=== PATIENT | female | born 1940 | race Caucasian/White ===

== ENCOUNTER 2016-03-30 09:27 | Emergency (ER) | payer MEDICARE, BC ==
[~2016-03-30] VITALS: Ht 160 cm; Wt 56.7 kg
[~2016-03-30 09:27] MED LIST: LATANOPROST2.5 ML BOTH EYES; LEVOTHYROXINE150 MCG ORAL; LEVOTHYROXINE200 MCG IV; LEVOTHYROXINE88 MCG ORAL; SYNTHROID137 MCG ORAL
[2016-03-30 09:43] VITALS: BP 148/76
--- NOTE | 2016-03-30 09:47 | Emergency Room Report ---
History of Present Illness General Chief Complaint: Pain Source: Patient Present Illness HPI The patient is a 75-year-old female presented after increased right shoulder pain for the past few days. Patient gradual onset of symptoms. Patient was having increased difficulty moving her right shoulder. The patient previous surgery on her left shoulder with joint replacement for arthritic changes. Patient stated that she had multiple allergies to pain medications. Patient any fever. She had not been having any abdominal pain. Patient denied any pain to the elbow or hands. She denied any numbness or weakness. Allergies: Coded Allergies: CODEINE (Unverified Allergy, Unknown, 04/24/15) CYCLOBENZAPRINE (Unverified Allergy, Unknown, 04/24/15) METHYLPREDNISOLONE (Unverified Allergy, Unknown, 04/24/15) TRAMADOL (Unverified Allergy, Unknown, 04/24/15) Patient History Past Medical History: see triage record, other - arthritis Reviewed Nursing Documentation: PMH: Agreed, PSxH: Agreed Nursing Documentation-PMH Past Medical History: No Stated History Hx Cardiac Problems: No Hx Cancer: No Hx Gastrointestinal Problems: No Hx Neurological Problems: No Review of Systems All Other Systems: negative except mentioned in HPI Physical Exam Vital Signs Date Time Temp Pulse Resp B/P Pulse Ox O2 Delivery O2 Flow Rate FiO2 03/30/16 09:34 97.5 79 18 148/76 100 Room Air Sp02 EP Interpretation: reviewed, normal General Appearance: normal inspection, well appearing, no apparent distress, alert, GCS 15 Head: atraumatic ENT: normal ENT inspection, hearing grossly normal, normal voice Neck: normal inspection, full range of motion, supple, no bony tend Respiratory: normal inspection, lungs clear, normal breath sounds, no respiratory distress, no retraction, no wheezing Cardiovascular #1: regular rate, rhythm, no edema Gastrointestinal: normal inspection, normal bowel sounds, non tender, soft, no guarding, no hernia Genitourinary: no CVA tenderness Musculoskeletal: normal inspection, back normal, tender - anterior, decreased ROM right shoulder Neurologic: normal inspection, alert, oriented x3, responsive, biztalk architect III-XII nml as tested, speech normal Psychiatric: normal inspection, judgement/insight normal, mood/affect normal Skin: normal inspection, normal color, no rash Medical Decision Making Diagnostic Impression: Primary Impression: Arthritis ER Course She presented for nontraumatic right shoulder pain. Differential diagnoses included was not limited to fracture, dislocation, a.c. separation, septic joint. Because of complexity of patient's case imaging studies were ordered. The patient appears to have localized tenderness to the anterior of the shoulder. She had no evident bicipital tenderness the patient was noted to have decreased active and passive range of motion. The patient was advised followup with orthopedics. She is also advised to see physical therapy for improvement in range of motion. Last Vital Signs Date Time Temp Pulse Resp B/P Pulse Ox O2 Delivery O2 Flow Rate FiO2 03/30/16 09:34 97.5 79 18 148/76 100 Room Air Status: unchanged Disposition: HOME, SELF-CARE Condition: Stable Scripts [place]-3 Acid Ethyl Esters (LOVAZA) 1 Gm Capsule 1 GM ORAL DAILY, #30 CAP 0 Refills Prov: Jerod Branch 03/30/16 Referrals: NON PHYSICIAN (PCP) Jerod Branch Mar 30, 2016 09:47
[2016-03-30] MEDS ORDERED: LOVAZA1 GM ORAL (10:57)
[2016-03-30 11:08] VITALS: BP 142/75
[2016-03-30 11:09] VITALS: BP 142/75
--- NOTE | 2016-03-31 10:29 | Diagnostic Imaging Report ---
Indication: Pain Findings: 3 views of the right shoulder were obtained. No fracture is identified. There is no malalignment. Osteophyte is with narrowing of the glenohumeral joint demonstrated. The bones are osteopenic. Calcification involving the rotator cuff also noted. Impression: Osteoarthritis. Osteopenia Calcific rotator cuff tendinitis
== END 2016-03-30 11:11 | disposition home or self-care (01) ==
LOC: EMR 09:43
DX: M19.90 Unspecified osteoarthritis, unspecified site (principal); Z88.6 Allergy status to analgesic agent; Z88.8 Allergy status to other drugs, medicaments and biological substances
CPT/HCPCS: 99283